=== PATIENT | female | born 1990 | race Caucasian/White ===

== ENCOUNTER 2020-12-05 12:07 | Emergency (ER) | payer OTHER ==
[2020-12-05 12:46] VITALS: BP 129/89; PULSE 96; RESP 18; TEMP 97.7
[2020-12-05 13:20] LABS: Appearance,Urine Cloudy (Clear); Bacteria,Urine Occasional /hpf; Bilirubin,Urine Negative (Negative); Blood,Urine Trace (Negative); Color,Urine Yellow; Glucose,Urine (UA) Negative (Negative); Ketones,Urine Negative (Negative); Leukocyte Esterase,Urine Large (Negative); Mucus,Urine Rare /hpf; Nitrite,Urine Negative (Negative); Protein,Urine Negative (Negative); RBC,Urine 16 /hpf (0-5); Specific Gravity,Urine 1.023 (1.001-1.035); Squamous Epithelial Cell,Urine 9 /hpf (0-4); Urobilinogen,Urine <2.0 mg/dL (<2.0); WBC,Urine 94 /hpf (0-5)
[2020-12-05] MEDS ORDERED: cefTRIAXone 1,000 MG VIAL (IM USE) IM STA (14:22)
[2020-12-05] MEDS ORDERED: CEPHALEXIN 500MG STARTER PACK 4 CAP BTL PO STA (14:22)
[2020-12-05] MEDS ORDERED: ACET/COD 300 MG/30 MG STARTER PACK 6 TAB BTL PO STA (14:22)
--- NOTE | 2020-12-05 14:24 | ED ---
Abdominal Pain HPI - General Chief Complaint: Abdominal Pain Stated Complaint: R sided abd pain & back pain Time Seen by Provider: 12/05/20 14:11 Source: patient, RN notes reviewed Mode of arrival: ambulatory Limitations: no limitations - History of Present Illness Initial Comments: This a 30-year-old female presents emergency Department with chief complaint of lower abdominal discomfort. Patient states started last few days does not seem to be traveling towards her back. Patient states she's felt hot and cold. Patient states she's had urinary frequency with decreased output slight dysuria no reported fever no chest pain or shortness of breath no nausea vomiting diarrhea constipation. - Related Data Previous Rx's Medication Instructions Recorded Cephalexin [Keflex] 500 mg PO Q8HR #30 cap 12/05/20 Allergies Allergy/AdvReac Type Severity Reaction Status Date / Time ibuprofen Allergy Dyspnea Verified 12/05/20 12:46 Review of Systems ROS Statement: Those systems with pertinent positive or pertinent negative responses have been documented in the HPI. ROS Other: All systems not noted in ROS Statement are negative. Past Medical History Past Medical History: No Reported History History of Any Multi-Drug Resistant Organisms: None Reported Past Surgical History: No Surgical Hx Reported Past Psychological History: Bipolar, Depression Smoking Status: Never smoker Past Alcohol Use History: Occasional Past Drug Use History: None Reported General Exam Limitations: no limitations General appearance: alert, in no apparent distress Head exam: Present: atraumatic, normocephalic, normal inspection Eye exam: Present: normal appearance, PERRL, EOMI. Absent: scleral icterus, conjunctival injection, periorbital swelling Neck exam: Present: normal inspection, full ROM. Absent: tenderness, meningismus, lymphadenopathy Respiratory exam: Present: normal lung sounds bilaterally. Absent: respiratory distress, wheezes, rales, rhonchi, stridor Cardiovascular Exam: Present: regular rate, normal rhythm, normal heart sounds. Absent: systolic murmur, diastolic murmur, rubs, gallop, clicks GI/Abdominal exam: Present: soft, normal bowel sounds. Absent: distended, tenderness, guarding, rebound, rigid Back exam: Present: CVA tenderness (R) (Minimal right) Course Vital Signs 12/05/20 12:41 Temperature 97.7 F Pulse Rate 96 Respiratory 18 Rate Blood Pressure 129/89 O2 Sat by Pulse 94 L Oximetry Medical Decision Making - Medical Decision Making Patient has evidence of urinary tract infection. Patient is afebrile, tolerating oral intake. Patient will receive Rocephin, discharged on Keflex return parameters were discussed. - Lab Data Lab Results 12/05/20 Range/Units 12:55 Urine Color Yellow Urine Appearance Cloudy H (Clear) Urine pH 5.0 (5.0-8.0) Ur Specific [place] 1.023 (1.001-1.035) Urine Protein Negative (Negative) Urine Glucose (UA) Negative (Negative) Urine Ketones Negative (Negative) Urine Blood Trace H (Negative) Urine Nitrite Negative (Negative) Urine Bilirubin Negative (Negative) Urine Urobilinogen <2.0 (<2.0) mg/dL Ur Leukocyte Esterase Large H (Negative) Urine RBC 16 H (0-5) /hpf Urine WBC 94 H (0-5) /hpf Ur Squamous Epith Cells 9 H (0-4) /hpf Urine Bacteria Occasional H (None) /hpf Urine Mucus Rare H (None) /hpf Disposition Clinical Impression: UTI (urinary tract infection) Disposition: HOME SELF-CARE Condition: Stable Instructions (If sedation given, give patient instructions): Urinary Tract Infection in Women (ED) Additional Instructions: Please return to the Emergency Department if symptoms worsen or any other conc erns. Prescriptions: Cephalexin [Keflex] 500 mg PO Q8HR #30 cap Is patient prescribed a controlled substance at d/c from ED?: No Referrals: None,Stated [Primary Care Provider] - 1-2 days Time of Disposition: 14:24
== END 2020-12-05 15:08 | disposition home or self-care (01) ==
LOC: EC 12:07
DX: N39.0 Urinary tract infection, site not specified (principal); F31.9 Bipolar disorder, unspecified; Z88.6 Allergy status to analgesic agent
CPT/HCPCS: 99284; 96372; 81001; J0696

== ENCOUNTER 2023-08-23 02:24 | Emergency (ER) | payer OTHER ==
[2023-08-23 02:32] VITALS: TEMP 97.8
[2023-08-23] MEDS: HYDROcodone/APAP 5-325MG 1 EACH TAB PO STA (02:56)
--- NOTE | 2023-08-23 03:54 | ED ---
Lower Extremity Injury HPI - General Chief Complaint: Extremity Injury, Lower Stated Complaint: ankle pain Time Seen by Provider: 08/23/23 02:37 Source: patient Mode of arrival: ambulatory Limitations: no limitations - History of Present Illness Initial Comments: 33-year-old female present with chief complaint of right ankle pain. Patient tripped and fell rolling her ankle. She is having pain with weightbearing. Pain and swelling mainly focused to the lateral malleolus. No numbness. - Related Data Previous Rx's Medication Instructions Recorded Cephalexin [Keflex] 500 mg PO Q8HR #30 cap 12/05/20 Allergies Allergy/AdvReac Type Severity Reaction Status Date / Time ibuprofen Allergy Dyspnea Verified 12/05/20 12:46 Review of Systems ROS Statement: Those systems with pertinent positive or pertinent negative responses have been documented in the HPI. ROS Other: All systems not noted in ROS Statement are negative. Past Medical History Past Medical History: Asthma History of Any Multi-Drug Resistant Organisms: None Reported Past Surgical History: Orthopedic Surgery Past Psychological History: Bipolar, Depression Smoking Status: Never smoker, Vaper Past Alcohol Use History: Occasional Past Drug Use History: None Reported General Exam Limitations: no limitations General appearance: alert, in no apparent distress Head exam: Present: atraumatic, normocephalic Eye exam: Present: normal appearance, EOMI Neck exam: Present: normal inspection. Absent: meningismus Respiratory exam: Absent: respiratory distress Cardiovascular Exam: Present: regular rate Right Ankle exam: Present: tenderness, swelling. Absent: full ROM Neurovascular tendon exam: Present: no vascular compromise Neurological exam: Present: alert, oriented X3 Psychiatric exam: Present: normal affect, normal mood Skin exam: Present: warm, dry Course Vital Signs 08/23/23 08/23/23 02:29 04:09 Temperature 97.8 F Pulse Rate 84 83 Respiratory 16 18 Rate Blood Pressure 106/74 108/76 O2 Sat by Pulse 98 95 Oximetry Medical Decision Making - Medical Decision Making Was pt. sent in by a medical professional or institution (S[facility] Pavon, ENGINEERING MATHEMATICIAN, urgent care, hospital, or penitentiary...) When possible be specific @ -No Did you speak to anyone other than the patient for history (EMS, parent, family, police, friend...)? What history was obtained from this source @ -No Did you review nursing and triage notes (agree or disagree)? Why? @ -I reviewed and agree with nursing and triage notes Were old charts reviewed (outside hosp., previous admission, EMS record, old EKG, old radiological studies, urgent care reports/EKG's, penitentiary records)? Report findings @ -No old charts were reviewed Differential Diagnosis (chest pain, altered mental status, abdominal pain women, abdominal pain men, vaginal bleeding, weakness, fever, dyspnea, syncope, headache, dizziness, GI bleed, back pain, seizure, CVA, palpatations, mental health, musculoskeletal)? @ -Differential includes fracture, dislocation, sprain, strain, this is not an all-inclusive list EKG interpreted by me (3pts min.). @ -As above X-rays interpreted by me (1pt min.). @ -Preliminary reading shows fracture of the lateral malleolus. Formal report is pending CT interpreted by me (1pt min.). @ -None done U/S interpreted by me (1pt. min.). @ -None done What testing was considered but not performed or refused? (CT, X-rays, U/S, labs)? Why? @ -None What meds were considered but not given or refused? Why? @ -None Did you discuss the management of the patient with other professionals (professionals i.e. , PA, ENGINEERING MATHEMATICIAN, lab, RT, psych nurse, renal social worker, repairer auto clocks, teacher, security public safety officer, case management assistant)? Give summary @ -No Was smoking cessation discussed for >3mins.? @ -No Was critical care preformed (if so, how long)? @ -No Were there social determinants of health that impacted care today? How? (Homelessness, low income, unemployed, alcoholism, drug addiction, transportation, low edu. Level, literacy, decrease access to med. care, senior living, rehab)? @ -No Was there de-escalation of care discussed even if they declined (Discuss DNR or withdrawal of care, Hospice)? DNR status @ -No What co-morbidities impacted this encounter? (DM, HTN, Smoking, COPD, CAD, Cancer, CVA, ARF, Chemo, Hep., AIDS, mental health diagnosis, sleep apnea, morbid obesity)? @ -None Was patient admitted / discharged? Hospital course, mention meds given and route, prescriptions, significant lab abnormalities, going to OR and other pertinent info. @ -33-year-old female presenting with chief complaint of right ankle pain. Patient fell in rolled her ankle. Pain to the lateral malleolus. Preliminary reading of x-ray shows possible fracture of the lateral malleolus. Patient is placed in a stirrup and posterior splint provided with crutches and instructed to follow-up with orthopedics. Discharged. Follow-up with PCP. Report back to ER with any new or worsening symptoms. Discussed return parameters and answered all questions. Patient conveyed verbal understanding and agreed to the plan. I discussed this case in detail with my attending Dr. Felipe Undiagnosed new problem with uncertain prognosis? @ -No Drug Therapy requiring intensive monitoring for toxicity (Heparin, Nitro, Insulin, Cardizem)? @ -No Were any procedures done? @ -No Diagnosis/symptom? @ -Ankle fracture Acute, or Chronic, or Acute on Chronic? @ -Acute Uncomplicated (without systemic symptoms) or Complicated (systemic symptoms)? @ -Uncomplicated Side effects of treatment? @ -No Exacerbation, Progression, or Severe Exacerbation? @ -No Poses a threat to life or bodily function? How? (Chest pain, [place], [place], pneumonia, PE, COPD, DKA, ARF, appy, cholecystitis, CVA, Diverticulitis, Homicidal, Suicidal, threat to staff... and all critical care pts) @ -No Disposition Clinical Impression: Ankle fracture Disposition: HOME SELF-CARE Condition: Good Instructions (If sedation given, give patient instructions): Ankle Fracture (ED) Additional Instructions: Follow-up with orthopedics. Report back to ER with any new or worsening symptoms. Rest, ice, compress, elevate the ankle. Is patient prescribed a controlled substance at d/c from ED?: No Referrals: Stacey Louis MD [Primary Care Provider] - 1-2 days Devante Sampson DO [Doctor of Osteopathic Medicine] - 1-2 days Time of Disposition: 03:53
[2023-08-23] MEDS: ACET/COD 300 MG/30 MG STARTER PACK 6 TAB BTL PO STA (04:05)
[2023-08-23 04:16] VITALS: BP 108/76; PULSE 83; RESP 18
--- NOTE | 2023-08-23 06:08 | XR ---
EXAM: XR Right Ankle Complete, 3 Views CLINICAL HISTORY: trip fall rolled right ankle pain with weight bearing TECHNIQUE: Frontal, lateral and oblique views of the right ankle. COMPARISON: No relevant prior studies available. FINDINGS: Bones/joints: No acute fracture. 8 mm loose body at the tip of lateral malleolus. Soft tissues: Soft tissue swelling at the ankle, worse anteriorly. IMPRESSION: No acute fracture
== END 2023-08-23 04:09 | disposition home or self-care (01) ==
LOC: EC 02:24
DX: S82.61XA Displaced fracture of lateral malleolus of right fibula, initial encounter for closed fracture (principal); F17.290 Nicotine dependence, other tobacco product, uncomplicated; Z88.6 Allergy status to analgesic agent; W01.0XXA Fall on same level from slipping, tripping and stumbling without subsequent striking against object, initial encounter; X50.1XXA Overexertion from prolonged static or awkward postures, initial encounter
CPT/HCPCS: 29505; 99283

== ENCOUNTER 2024-01-03 06:53 | Emergency (ER) | payer OTHER ==
[2024-01-03 06:57] VITALS: BP 135/85; TEMP 97.9
[2024-01-03 07:02] VITALS: RESP 20
--- NOTE | 2024-01-03 07:11 | ED ---
General Adult HPI - General Chief complaint: Upper Respiratory Infection Stated complaint: Asthma Time Seen by Provider: 01/03/24 07:01 Source: patient, RN notes reviewed, old records reviewed Mode of arrival: ambulatory Limitations: no limitations - History of Present Illness Initial comments: 33-year-old female with asthma presenting for refill of her albuterol inhaler. Patient states she ran out of her inhaler in the middle of the night. She has been using it 5-6 times daily after a recent bronchitis episode about 2 weeks ago. She states she has an appointment with her primary care provider tomorrow. Patient denies fever. Denies chest pain. - Related Data Previous Rx's Medication Instructions Recorded Cephalexin [Keflex] 500 mg PO Q8HR #30 cap 12/05/20 Albuterol Inhaler [Ventolin Hfa 1 - 2 puff INHALATION Q4HR PRN #1 01/03/24 Inhaler] each Albuterol Nebulized [Ventolin 2.5 mg INHALATION Q4H #75 ml 01/03/24 Nebulized] methylPREDNISolone Dose Pack 4 mg PO DIRECTED #21 packet 01/03/24 [Medrol Dose Pack] Allergies Allergy/AdvReac Type Severity Reaction Status Date / Time ibuprofen Allergy Dyspnea Verified 01/03/24 06:57 Review of Systems ROS Statement: Those systems with pertinent positive or pertinent negative responses have been documented in the HPI. ROS Other: All systems not noted in ROS Statement are negative. Past Medical History Past Medical History: Asthma History of Any Multi-Drug Resistant Organisms: None Reported Past Surgical History: Orthopedic Surgery Past Psychological History: Bipolar, Depression Smoking Status: Never smoker, Vaper Past Alcohol Use History: Occasional Past Drug Use History: None Reported General Exam Limitations: no limitations General appearance: alert, in no apparent distress Head exam: Present: atraumatic, normocephalic Eye exam: Present: normal appearance, PERRL ENT exam: Present: normal exam Neck exam: Present: normal inspection Respiratory exam: Present: wheezes. Absent: respiratory distress Cardiovascular Exam: Present: regular rate, normal rhythm GI/Abdominal exam: Present: soft. Absent: distended, tenderness Neurological exam: Present: alert, oriented X3 Psychiatric exam: Present: normal affect, normal mood Skin exam: Present: warm, dry, intact Course Vital Signs 01/03/24 06:54 Temperature 97.9 F Pulse Rate 101 H Respiratory 20 Rate Blood Pressure 135/85 O2 Sat by Pulse 96 Oximetry Medical Decision Making - Medical Decision Making Was pt. sent in by a medical professional or institution ([facility] Pavon, ORGAN PIPE VOICER, urgent care, hospital, or detention...) When possible be specific @ -No Did you speak to anyone other than the patient for history (EMS, parent, family, police, friend...)? What history was obtained from this source @ -No Did you review nursing and triage notes (agree or disagree)? Why? @ -I reviewed and agree with nursing and triage notes Were old charts reviewed (outside hosp., previous admission, EMS record, old EKG, old radiological studies, urgent care reports/EKG's, detention records)? Report findings @ -No old charts were reviewed Differential Diagnosis: Upper respiratory infection, asthma exacerbation, pneumonia, acute bronchitis EKG interpreted by me (3pts min.). @ -As above X-rays interpreted by me (1pt min.). @ -None done CT interpreted by me (1pt min.). @ -None done U/S interpreted by me (1pt. min.). @ -None done What testing was considered but not performed or refused? (CT, X-rays, U/S, labs)? Why? @ -None What meds were considered but not given or refused? Why? @ -None Did you discuss the management of the patient with other professionals (professionals i.e. SANTINO Pavon, ORGAN PIPE VOICER, lab, RT, psych nurse, social scientist, manager operational, teacher, cra officer, patient case manager)? Give summary @ -No Was smoking cessation discussed for >3mins.? @ -No Was critical care preformed (if so, how long)? @ -No Were there social determinants of health that impacted care today? How? (Homelessness, low income, unemployed, alcoholism, drug addiction, transportation, low edu. Level, literacy, decrease access to med. care, fpc, rehab)? @ -No Was there de-escalation of care discussed even if they declined (Discuss DNR or withdrawal of care, Hospice)? DNR status @ -No What co-morbidities impacted this encounter? (DM, HTN, Smoking, COPD, CAD, Cancer, CVA, ARF, Chemo, Hep., AIDS, mental health diagnosis, sleep apnea, morbid obesity)? @ -Asthma Was patient admitted / discharged? Hospital course, mention meds given and route, prescriptions, significant lab abnormalities, going to OR and other pertinent info. @33-year-old female presenting with cough and wheezing, request for medication refill. Needs a albuterol inhaler refill. She is prescribed an inhaler as well as nebulized albuterol and a short course of steroids. She has an appointment with her primary care provider tomorrow for continuation of care. Undiagnosed new problem with uncertain prognosis? @ -No Drug Therapy requiring intensive monitoring for toxicity (Heparin, Nitro, Insulin, Cardizem)? @ -No Were any procedures done? @ -No Diagnosis/symptom? @ -[Asthma, medication refill Acute, or Chronic, or Acute on Chronic? @Acute Uncomplicated (without systemic symptoms) or Complicated (systemic symptoms)? @ -Default Side effects of treatment? @ -No Exacerbation, Progression, or Severe Exacerbation? @ -No Poses a threat to life or bodily function? How? (Chest pain, [place], [place], pneumonia, PE, COPD, DKA, ARF, appy, cholecystitis, CVA, Diverticulitis, Homicidal, Suicidal, threat to staff... and all critical care pts) @low Risk at this time Disposition Clinical Impression: Asthma Disposition: HOME SELF-CARE Condition: Fair Instructions (If sedation given, give patient instructions): Asthma (DC) Additional Instructions: Follow-up with your primary care provider tomorrow as planned Prescriptions: methylPREDNISolone Dose Pack [Medrol Dose Pack] 4 mg PO DIRECTED #21 packet Albuterol Inhaler [Ventolin Hfa Inhaler] 1 - 2 puff INHALATION Q4HR PRN #1 each PRN Reason: Shortness Of Breath Albuterol Nebulized [Ventolin Nebulized] 2.5 mg INHALATION Q4H #75 ml Is patient prescribed a controlled substance at d/c from ED?: No Referrals: Bryant Asher MD [Primary Care Provider] - 1-2 days Time of Disposition: 07:10
[2024-01-03] MEDS: IPRATROPIUM-ALBUTEROL 3 ML NEB INHALATION STA (07:54)
[2024-01-03] MEDS: ALBUTEROL NEBULIZED 2.5 MG/3 ML INHALATION STA (07:54)
[2024-01-03 08:15] VITALS: PULSE 85
== END 2024-01-03 08:22 | disposition home or self-care (01) ==
LOC: EC 06:53
DX: J45.909 Unspecified asthma, uncomplicated (principal); F17.290 Nicotine dependence, other tobacco product, uncomplicated; Z88.8 Allergy status to other drugs, medicaments and biological substances
CPT/HCPCS: 94640; 99284

== ENCOUNTER 2024-08-11 02:53 | Emergency (ER) | payer OTHER ==
[2024-08-11 03:45] LABS: Bacteria,Urine Rare /hpf; Bilirubin,Urine Negative (Negative); Blood,Urine Small (Negative); Color,Urine Colorless; Glucose,Urine (UA) Negative (Negative); Ketones,Urine Negative (Negative); Leukocyte Esterase,Urine Moderate (Negative); Mucus,Urine Rare /hpf; Nitrite,Urine Negative (Negative); PH, Urine 5.5 (5.0-8.0); Protein,Urine Negative (Negative); RBC,Urine 2 /hpf (0-5); Specific Gravity,Urine 1.007 (1.001-1.035); Squamous Epithelial Cell,Urine 1 /hpf (0-4); Urobilinogen,Urine <2.0 mg/dL (<2.0); WBC,Urine 2 /hpf (0-5)
[2024-08-11 03:57] LABS: HCT 40.1 % (37.2-46.3); HGB 14.0 g/dL (12.0-15.0); MCH 31.0 pg (27.0-32.0); MCHC 34.9 g/dL (32.0-37.0); MCV 88.7 fL (80.0-97.0); Platelet Count 261 10*3/uL (140-440); RBC 4.52 10*6/uL (4.10-5.20); RDW 12.3 % (11.5-14.5); WBC 5.23 10*3/uL (4.50-10.00)
[2024-08-11 04:25] LABS: Eosinophils # (M) 0.10 k/uL (0-0.7); Lymphocytes # (M) 0.89 k/uL (1.0-4.8); Monocytes # (M) 0.26 k/uL (0-1.0); Neutrophils # (M) 3.97 k/uL (1.3-7.7); Neutrophils % (M) 58 %; Total Cells Counted 200
[2024-08-11 04:26] LABS: ALT 23 U/L (4-34); AST 27 U/L (14-36); African American GFR (CKD) >90 (>60 ml/min/1.73 sqM); Albumin 4.2 g/dL (3.5-5.0); Alkaline Phosphatase 97 U/L (38-126); Amylase 43 U/L (30-110); Anion Gap 10 mmol/L; Blood Urea Nitrogen 10 mg/dL (7-17); Calcium 9.7 mg/dL (8.4-10.2); Carbon Dioxide 23 mmol/L (22-30); Chloride 100 mmol/L (98-107); Glucose 95 mg/dL (74-99); Lipase 60 U/L (23-300); Non-African American GFR(CKD) >90 (>60 ml/min/1.73 sqM); Potassium 4.2 mmol/L (3.5-5.1); Sodium 133 mmol/L (137-145); Total Protein 7.0 g/dL (6.3-8.2)
[2024-08-11] MEDS: MORPHINE SULFATE 4 MG/ML SYRINGE IV STA (04:40)
--- NOTE | 2024-08-11 05:44 | CT ---
EXAM: CT Abdomen and Pelvis Without Intravenous Contrast CLINICAL HISTORY: Left flank Pain TECHNIQUE: Axial computed tomography images of the abdomen and pelvis without intravenous contrast. CTDI is 23 mGy and DLP is 1461 mGy-cm. This CT exam was performed using one or more of the following dose reduction techniques: automated exposure control, adjustment of the mA and/or kV according to patient size, and/or use of iterative reconstruction technique. COMPARISON: No relevant prior studies available. FINDINGS: Lung bases: Unremarkable. No mass. No consolidation. ABDOMEN: Liver: Unremarkable. Gallbladder and bile ducts: Unremarkable. No calcified stones. No ductal dilation. Pancreas: Unremarkable. No ductal dilation. Spleen: Unremarkable. No splenomegaly. Adrenals: Unremarkable. No mass. Kidneys and ureters: Unremarkable. Nonobstructing stones. No hydronephrosis. Stomach and bowel: Diverticulosis. No obstruction. No mucosal thickening. PELVIS: Appendix: Normal appendix. Bladder: Unremarkable. No stones. Reproductive: Unremarkable as visualized. ABDOMEN and PELVIS: Intraperitoneal space: Unremarkable. No free air. No significant fluid collection. Bones/joints: No acute fracture. No dislocation. Soft tissues: Unremarkable. Vasculature: Unremarkable. No abdominal aortic aneurysm. Lymph nodes: Unremarkable. No enlarged lymph nodes. IMPRESSION: 1. No acute finding of the abdomen or pelvis. 2. Diverticulosis.
--- NOTE | 2024-08-11 06:14 | ED ---
Abdominal Pain HPI - General Chief Complaint: Abdominal Pain Stated Complaint: Abd Pain Time Seen by Provider: 08/11/24 03:13 Source: patient Mode of arrival: ambulatory Limitations: no limitations - History of Present Illness Initial Comments: This patient is a 34-year-old woman who presents with complaint of having left lower quadrant abdominal pain, nausea and vomiting. Patient states that the symptoms that started yesterday and have gotten worse into this morning. She states that she does have a history of ovarian cysts related to PCOS, but that this is not identical to that. She indicates left lower quadrant. She has not noticed worsening or relieving factors. 1 episode of vomiting no hematemesis. No change in bowel movements or urination. MD Complaint: abdominal pain Onset/Timin -: days(s) Location: LLQ Radiation: none Migration to: no migration Severity: moderate Severity scale (1-10): 7 Quality: aching Consistency: constant Improves With: nothing Worsens With: nothing Associated Symptoms: nausea, vomiting - Related Data Previous Rx's Medication Instructions Recorded Cephalexin [Keflex] 500 mg PO Q8HR #30 cap 12/05/20 Albuterol Inhaler [Ventolin Hfa 1 - 2 puff INHALATION Q4HR PRN #1 01/03/24 Inhaler] each Albuterol Nebulized [Ventolin 2.5 mg INHALATION Q4H #75 ml 01/03/24 Nebulized] methylPREDNISolone Dose Pack 4 mg PO DIRECTED #21 packet 01/03/24 [Medrol Dose Pack] traMADol HCl [Ultram] 50 mg PO Q6H PRN #16 tab 08/11/24 Cyclobenzaprine [Flexeril] 10 mg PO TID PRN #15 tab 08/14/24 predniSONE 50 mg PO DAILY #5 tab 08/14/24 Allergies Allergy/AdvReac Type Severity Reaction Status Date / Time ibuprofen Allergy Dyspnea Verified 08/14/24 02:33 Review of Systems ROS Statement: Those systems with pertinent positive or pertinent negative responses have been documented in the HPI. ROS Other: All systems not noted in ROS Statement are negative. Constitutional: Denies: fever, chills Respiratory: Denies: cough, dyspnea Cardiovascular: Denies: chest pain, palpitations, edema Gastrointestinal: Reports: abdominal pain, nausea, vomiting. Denies: diarrhea, constipation, hematemesis, melena, hematochezia Genitourinary: Denies: dysuria, hematuria, discharge, abnormal menses Musculoskeletal: Denies: back pain Skin: Denies: rash Neurological: Denies: headache, weakness Past Medical History Past Medical History: Asthma Additional Past Medical History / Comment(s): PCOS History of Any Multi-Drug Resistant Organisms: None Reported Past Surgical History: Orthopedic Surgery Past Psychological History: Bipolar, Depression Smoking Status: Vaper Past Alcohol Use History: Occasional Past Drug Use History: None Reported General Exam Limitations: no limitations General appearance: alert, in no apparent distress Head exam: Present: atraumatic, normocephalic Eye exam: Present: normal appearance. Absent: scleral icterus, conjunctival injection Neck exam: Present: normal inspection Respiratory exam: Present: normal lung sounds bilaterally. Absent: respiratory distress, wheezes, rales, rhonchi, stridor, accessory muscle use Cardiovascular Exam: Present: regular rate, normal rhythm, normal heart sounds. Absent: systolic murmur, diastolic murmur, rubs, gallop GI/Abdominal exam: Present: soft, tenderness (There is mild to moderate left lower quadrant tenderness, no rebound or guarding). Absent: distended, guarding, rebound, rigid, mass, pulsatile mass, hernia External exam: Present: other (Patient declines exam at this time) Extremities exam: Present: normal inspection, normal capillary refill. Absent: pedal edema, calf tenderness Back exam: Present: normal inspection. Absent: CVA tenderness (R), CVA tenderness (L) Neurological exam: Present: alert Skin exam: Present: warm, dry, intact, normal color. Absent: rash Course Vital Signs 08/11/24 08/11/24 02:57 06:40 Temperature 98.3 F 98.1 F Pulse Rate 105 H 81 Respiratory 18 17 Rate Blood Pressure 118/82 98/64 O2 Sat by Pulse 97 95 Oximetry Medical Decision Making - Medical Decision Making The patient had CT scan of the abdomen and pelvis that I interpreted as negative for free air, obstruction, or acute surgical condition Was pt. sent in by a medical professional or institution (, PA, BELT MACHINE OPERATOR, urgent care, hospital, or group home...) When possible be specific @ -[No] Did you speak to anyone other than the patient for history (EMS, parent, family, police, friend...)? What history was obtained from this source @ -[No] Did you review nursing and triage notes (agree or disagree)? Why? @ -[I reviewed and agree with nursing and triage notes] Were old charts reviewed (outside hosp., previous admission, EMS record, old EKG, old radiological studies, urgent care reports/EKG's, group home records)? Report findings @ -[No old charts were reviewed] Differential Diagnosis (chest pain, altered mental status, abdominal pain women, abdominal pain men, vaginal bleeding, weakness, fever, dyspnea, syncope, headache, dizziness, GI bleed, back pain, seizure, CVA, palpatations, mental health, musculoskeletal)? @ -[Differential Abdominal Pain Women: Appendicitis, Cholecystitis, diverticulosis, ischemic bowel, pancreatitis, hepatitis, UTI, gastroenteritis, AAA, incarcerated hernia, bowel obstruction, constipation, inflammatory bowel, hepatitis, peptic ulcer disease, splenic infarction, perforated viscus, vulvitis, ovarian torsion, PID, kidney stone, placenta abruption, this is not meant to be an all-inclusive list EKG interpreted by me (3pts min.). @ -[As above] X-rays interpreted by me (1pt min.). @ -[None done] CT interpreted by me (1pt min.). @ -[I interpreted as above U/S interpreted by me (1pt. min.). @ -[None done] What testing was considered but not performed or refused? (CT, X-rays, U/S, labs)? Why? @ -[None] What meds were considered but not given or refused? Why? @ -[None] Did you discuss the management of the patient with other professionals (professionals i.e. , PA, BELT MACHINE OPERATOR, lab, RT, psych nurse, social media content specialist, orthopedic dentist, teacher, health officer, spring encaser)? Give summary @ -[No] Was smoking cessation discussed for >3mins.? @ -[No] Was critical care preformed (if so, how long)? @ -[No] Were there social determinants of health that impacted care today? How? (Homelessness, low income, unemployed, alcoholism, drug addiction, transportation, low edu. Level, literacy, decrease access to med. care, intermediate, rehab)? @ -[No] Was there de-escalation of care discussed even if they declined (Discuss DNR or withdrawal of care, Hospice)? DNR status @ -[No] What co-morbidities impacted this encounter? (DM, HTN, Smoking, COPD, CAD, Cancer, CVA, ARF, Chemo, Hep., AIDS, mental health diagnosis, sleep apnea, morbid obesity)? @ -[Polycystic ovarian syndrome Was patient admitted / discharged? Hospital course, mention meds given and route, prescriptions, significant lab abnormalities, going to OR and other pertinent info. @ -[Patient is 34-year-old woman with abdominal pain. She did have some mild to moderate tenderness and therefore CT scan is obtained to rule out diverticulitis or other acute surgical condition. The patient is feeling better following medication and at this point would like to go home. Discussed ap propriate further care and follow-up as well as return parameters. Undiagnosed new problem with uncertain prognosis? @ -[No] Drug Therapy requiring intensive monitoring for toxicity (Heparin, Nitro, Insulin, Cardizem)? @ -[No] Were any procedures done? @ -[No] Diagnosis/symptom? @ -[Acute abdominal pain Acute, or Chronic, or Acute on Chronic? @ -[Acute Uncomplicated (without systemic symptoms) or Complicated (systemic symptoms)? @ -[Uncomplicated Side effects of treatment? @ -[No] Exacerbation, Progression, or Severe Exacerbation? @ -[No] Poses a threat to life or bodily function? How? (Chest pain, USA, [place], pneumonia, PE, COPD, DKA, ARF, appy, cholecystitis, CVA, Diverticulitis, Homicidal, Suicidal, threat to staff... and all critical care pts) @ -[No] All treatments are based on ideal body weight as in ED triage - Lab Data Result diagrams: 08/11/24 03:43 08/11/24 03:43 Lab Results 08/11/24 08/11/24 08/11/24 Range/Units 03:18 03:18 03:43 WBC 5.23 (4.50-10.00) 10*3/uL RBC 4.52 (4.10-5.20) 10*6/uL Hgb 14.0 (12.0-15.0) g/dL Hct 40.1 (37.2-46.3) % MCV 88.7 (80.0-97.0) fL MCH 31.0 (27.0-32.0) pg MCHC 34.9 (32.0-37.0) g/dL Plt Count 261 (140-440) 10*3/uL MPV 9.6 (9.5-12.2) fL Immature Gran % (Auto) 0.4 % Neutrophils % (Manual) 58 % Band Neuts % (Manual) 18 % Lymphocytes % (Manual) 17 % Monocytes % (Manual) 5 % Eosinophils % (Manual) 2 % Immature Gran # 0.02 (0.00-0.04) 10*3/uL Neutrophils # (Manual) 3.97 (1.3-7.7) k/uL Lymphocytes # (Manual) 0.89 L (1.0-4.8) k/uL Monocytes # (Manual) 0.26 (0-1.0) k/uL Eosinophils # (Manual) 0.10 (0-0.7) k/uL Nucleated RBCs 0 (0-0) /100 WBC Manual Slide Review Performed Sodium (137-145) mmol/L Potassium (3.5-5.1) mmol/L Chloride (98-107) mmol/L Carbon Dioxide (22-30) mmol/L Anion Gap mmol/L BUN (7-17) mg/dL Creatinine (0.52-1.04) mg/dL Est GFR (CKD-EPI)AfAm (>60 ml/min/1.73 sqM) Est GFR (CKD-EPI)NonAf (>60 ml/min/1.73 sqM) Glucose (74-99) mg/dL Calcium (8.4-10.2) mg/dL Total Bilirubin (0.2-1.3) mg/dL AST (14-36) U/L ALT (4-34) U/L Alkaline Phosphatase (38-126) U/L Total Protein (6.3-8.2) g/dL Albumin (3.5-5.0) g/dL Amylase (30-110) U/L Lipase (23-300) U/L Urine Color Colorless Urine Appearance Clear (Clear) Urine pH 5.5 (5.0-8.0) Ur Specific [place] 1.007 (1.001-1.035) Urine Protein Negative (Negative) Urine Glucose (UA) Negative (Negative) Urine Ketones Negative (Negative) Urine Blood Small H (Negative) Urine Nitrite Negative (Negative) Urine Bilirubin Negative (Negative) Urine Urobilinogen <2.0 (<2.0) mg/dL Ur Leukocyte Esterase Moderate H (Negative) Urine RBC 2 (0-5) /hpf Urine WBC 2 (0-5) /hpf Ur Squamous Epith Cells 1 (0-4) /hpf Urine Bacteria Rare H (None) /hpf Urine Mucus Rare H (None) /hpf Urine HCG, Qual Not Detected (Not Detectd) 08/11/24 Range/Units 03:43 WBC (4.50-10.00) 10*3/uL RBC (4.10-5.20) 10*6/uL Hgb (12.0-15.0) g/dL Hct (37.2-46.3) % MCV (80.0-97.0) fL MCH (27.0-32.0) pg MCHC (32.0-37.0) g/dL Plt Count (140-440) 10*3/uL MPV (9.5-12.2) fL Immature Gran % (Auto) % Neutrophils % (Manual) % Band Neuts % (Manual) % Lymphocytes % (Manual) % Monocytes % (Manual) % Eosinophils % (Manual) % Immature Gran # (0.00-0.04) 10*3/uL Neutrophils # (Manual) (1.3-7.7) k/uL Lymphocytes # (Manual) (1.0-4.8) k/uL Monocytes # (Manual) (0-1.0) k/uL Eosinophils # (Manual) (0-0.7) k/uL Nucleated RBCs (0-0) /100 WBC Manual Slide Review Sodium 133 L (137-145) mmol/L Potassium 4.2 (3.5-5.1) mmol/L Chloride 100 (98-107) mmol/L Carbon Dioxide 23 (22-30) mmol/L Anion Gap 10 mmol/L BUN 10 (7-17) mg/dL Creatinine 0.53 (0.52-1.04) mg/dL Est GFR (CKD-EPI)AfAm >90 (>60 ml/min/1.73 sqM) Est GFR (CKD-EPI)NonAf >90 (>60 ml/min/1.73 sqM) Glucose 95 (74-99) mg/dL Calcium 9.7 (8.4-10.2) mg/dL Total Bilirubin 0.4 (0.2-1.3) mg/dL AST 27 (14-36) U/L ALT 23 (4-34) U/L Alkaline Phosphatase 97 (38-126) U/L Total Protein 7.0 (6.3-8.2) g/dL Albumin 4.2 (3.5-5.0) g/dL Amylase 43 (30-110) U/L Lipase 60 (23-300) U/L Urine Color Urine Appearance (Clear) Urine pH (5.0-8.0) Ur Specific [place] (1.001-1.035) Urine Protein (Negative) Urine Glucose (UA) (Negative) Urine Ketones (Negative) Urine Blood (Negative) Urine Nitrite (Negative) Urine Bilirubin (Negative) Urine Urobilinogen (<2.0) mg/dL Ur Leukocyte Esterase (Negative) Urine RBC (0-5) /hpf Urine WBC (0-5) /hpf Ur Squamous Epith Cells (0-4) /hpf Urine Bacteria (None) /hpf Urine Mucus (None) /hpf Urine HCG, Qual (Not Detectd) Disposition Clinical Impression: Pelvic pain Disposition: HOME SELF-CARE Condition: Good Instructions (If sedation given, give patient instructions): Pelvic Pain in Women (ED) Prescriptions: traMADol HCl [Ultram] 50 mg PO Q6H PRN #16 tab PRN Reason: Pain Is patient prescribed a controlled substance at d/c from ED?: Yes When asked, does pt state using other controlled substances?: No If prescribed controlled substance>3 days was MAPS reviewed?: Prescribed <3 Days If opioid is for acute pain is fill amount 7 days or less?: Yes If Rx opioid, was Start Talking consent form obtained?: Yes Referrals: Bryant Asher MD [Primary Care Provider] - 1-2 days
[2024-08-11 10:14] VITALS: BP 98/64; PULSE 81; RESP 17; TEMP 98.1
== END 2024-08-11 06:46 | disposition home or self-care (01) ==
LOC: EC 02:53
DX: R10.2 Pelvic and perineal pain (principal); E28.2 Polycystic ovarian syndrome; F17.290 Nicotine dependence, other tobacco product, uncomplicated; Z88.6 Allergy status to analgesic agent
CPT/HCPCS: 36415; 80053; 82150; 83690; 85025; 81001; 81025; 74176; 99284; 96374; J2270

== ENCOUNTER 2024-08-14 02:30 | Emergency (ER) | payer OTHER ==
[2024-08-14 02:34] VITALS: BP 139/90; PULSE 68; RESP 16; TEMP 98
--- NOTE | 2024-08-14 02:44 | ED ---
Back Pain HPI - General Chief Complaint: Back Pain/Injury Stated Complaint: Back pain Time Seen by Provider: 08/14/24 02:34 Source: patient, RN notes reviewed Mode of arrival: ambulatory Limitations: no limitations - History of Present Illness Initial Comments: 34-year-old female presents emergency department complaint of low back pain. Patient states she bent over to grab something of a laundry basket when she felt her back pull. Patient states she has left lower back pain she denies any lower extremity weakness or radiating pain. Patient denies bowel, bladder retention no saddle anesthesias no lower extremity paresthesias or focal weakness. Patient states that she is injured back in the past and feels very similar she states nothing was making it feel more comfortable so she presented for pain control. Patient states she does have allergy to ibuprofen denies any current abdominal complaints she states she was recently seen in the ER for abdominal pain that had resolved. - Related Data Previous Rx's Medication Instructions Recorded Cephalexin [Keflex] 500 mg PO Q8HR #30 cap 12/05/20 Albuterol Inhaler [Ventolin Hfa 1 - 2 puff INHALATION Q4HR PRN #1 01/03/24 Inhaler] each Albuterol Nebulized [Ventolin 2.5 mg INHALATION Q4H #75 ml 01/03/24 Nebulized] methylPREDNISolone Dose Pack 4 mg PO DIRECTED #21 packet 01/03/24 [Medrol Dose Pack] traMADol HCl [Ultram] 50 mg PO Q6H PRN #16 tab 08/11/24 Cyclobenzaprine [Flexeril] 10 mg PO TID PRN #15 tab 08/14/24 predniSONE 50 mg PO DAILY #5 tab 08/14/24 Allergies Allergy/AdvReac Type Severity Reaction Status Date / Time ibuprofen Allergy Dyspnea Verified 08/14/24 02:33 Review of Systems ROS Statement: Those systems with pertinent positive or pertinent negative responses have been documented in the HPI. ROS Other: All systems not noted in ROS Statement are negative. Past Medical History Past Medical History: Asthma Additional Past Medical History / Comment(s): PCOS History of Any Multi-Drug Resistant Organisms: None Reported Past Surgical History: Orthopedic Surgery Past Psychological History: Bipolar, Depression Smoking Status: Vaper Past Alcohol Use History: Occasional Past Drug Use History: None Reported General Exam Limitations: no limitations General appearance: alert, in no apparent distress Head exam: Present: atraumatic, normocephalic, normal inspection Respiratory exam: Present: normal lung sounds bilaterally. Absent: respiratory distress, wheezes, rales, rhonchi, stridor Cardiovascular Exam: Present: regular rate, normal rhythm, normal heart sounds. Absent: systolic murmur, diastolic murmur, rubs, gallop, clicks GI/Abdominal exam: Present: soft, normal bowel sounds. Absent: distended, tenderness, guarding, rebound, rigid Extremities exam: Present: other (Lower extremity strength equal bilaterally no discoloration equal color and warmth) Back exam: Present: full ROM (Pain with range of motion), tenderness (Left lower lumbar), muscle spasm, paraspinal tenderness. Absent: vertebral tenderness Neurological exam: Present: alert, oriented X3, CN II-XII intact, reflexes normal. Absent: motor sensory deficit Course Vital Signs 08/14/24 02:31 Temperature 98 F Pulse Rate 68 Respiratory 16 Rate Blood Pressure 139/90 O2 Sat by Pulse 98 Oximetry Medical Decision Making - Medical Decision Making Was pt. sent in by a medical professional or institution (, PA, SERVICER TRAVEL TRAILERS, urgent care, hospital, or usp...) When possible be specific @ -No Did you speak to anyone other than the patient for history (EMS, parent, family, police, friend...)? What history was obtained from this source @ -No Did you review nursing and triage notes (agree or disagree)? Why? @ -I reviewed and agree with nursing and triage notes Were old charts reviewed (outside hosp., previous admission, EMS record, old EK G, old radiological studies, urgent care reports/EKG's, usp records)? Report findings @ -No old charts were reviewed Differential Diagnosis (chest pain, altered mental status, abdominal pain women, abdominal pain men, vaginal bleeding, weakness, fever, dyspnea, syncope, headache, dizziness, GI bleed, back pain, seizure, CVA, palpatations, mental health, musculoskeletal)? @ -Differential Back Pain: Strain, zoster, cauda equina syndrome, epidural abscess, vertebral osteomyelitis, discitis, fracture, subluxation, disc herniation, DJD, spinal stenosis, dissection, AAA, pancreatitis, peptic ulcer disease, pyelonephritis, kidney stone, this is not meant to be an all-inclusive list. EKG interpreted by me (3pts min.). @ -None none X-rays interpreted by me (1pt min.). @ -None done CT interpreted by me (1pt min.). @ -None done U/S interpreted by me (1pt. min.). @ -None done What testing was considered but not performed or refused? (CT, X-rays, U/S, labs)? Why? @ -None What meds were considered but not given or refused? Why? @ -None Did you discuss the management of the patient with other professionals (professionals i.e. , PA, SERVICER TRAVEL TRAILERS, lab, RT, psych nurse, social services, event av operator, t eacher, chief financial officer, upper caser)? Give summary @ -No Was smoking cessation discussed for >3mins.? @ -No Was critical care preformed (if so, how long)? @ -No Were there social determinants of health that impacted care today? How? (Homelessness, low income, unemployed, alcoholism, drug addiction, transportation, low edu. Level, literacy, decrease access to med. care, longterm, rehab)? @ -No Was there de-escalation of care discussed even if they declined (Discuss DNR or withdrawal of care, Hospice)? DNR status @ -No What co-morbidities impacted this encounter? (DM, HTN, Smoking, COPD, CAD, Cance r, CVA, ARF, Chemo, Hep., AIDS, mental health diagnosis, sleep apnea, morbid obesity)? @ -None Was patient admitted / discharged? Hospital course, mention meds given and route, prescriptions, significant lab abnormalities, going to OR and other pertinent info. @ -Discharge patient has lumbar strain without red flag symptoms. Patient is neurologically intact will be discharged after analgesics. Return parameters discussed. Undiagnosed new problem with uncertain prognosis? @ -No Drug Therapy requiring intensive monitoring for toxicity (Heparin, Nitro, Insulin, Cardizem)? @ -No Were any procedures done? @ -No Diagnosis/symptom? @ -Lumbar strain Acute, or Chronic, or Acute on Chronic? @ -Acute Uncomplicated (without systemic symptoms) or Complicated (systemic symptoms)? @ -Complicated Side effects of treatment? @ -No Exacerbation, Progression, or Severe Exacerbation? @ -No Poses a threat to life or bodily function? How? (Chest pain, USA, [place], pneumonia, PE, COPD, DKA, ARF, appy, cholecystitis, CVA, Diverticulitis, Homicidal, Suicidal, threat to staff... and all critical care pts) @ -No Disposition Clinical Impression: Lumbar strain Disposition: HOME SELF-CARE Condition: Stable Instructions (If sedation given, give patient instructions): Acute Low Back Pain (ED) Additional Instructions: Please return to the Emergency Department if symptoms worsen or any other concerns. Prescriptions: Cyclobenzaprine [Flexeril] 10 mg PO TID PRN #15 tab PRN Reason: Muscle Spasm predniSONE 50 mg PO DAILY #5 tab Is patient prescribed a controlled substance at d/c from ED?: No Referrals: Bryant Asher MD [Primary Care Provider] - 1-2 days Time of Disposition: 02:44
[2024-08-14] MEDS: LIDOCAINE 4% PATCH TOPICAL ONE (02:49)
[2024-08-14] MEDS: ORPHENADRINE 30 MG/ML 2 ML VIAL IM STA (02:50)
[2024-08-14] MEDS: ACET/COD 300 MG/30 MG STARTER PACK 6 TAB BTL PO STA (02:50)
== END 2024-08-14 02:53 | disposition home or self-care (01) ==
LOC: EC 02:30
DX: S39.012A Strain of muscle, fascia and tendon of lower back, initial encounter (principal); F17.290 Nicotine dependence, other tobacco product, uncomplicated; Z88.6 Allergy status to analgesic agent; X58.XXXA Exposure to other specified factors, initial encounter
CPT/HCPCS: 99283; 96372; J2360